=== PATIENT | male | born 1975 | race Hispanic/Latino ===

== ENCOUNTER 2018-05-09 15:47 | Emergency (ER) | payer OTHER ==
[2018-05-09] MEDS ORDERED: MORPHINE 4 MG/ML SYR ONE (16:37)
[2018-05-09] MEDS ORDERED: ONDANSETRON 4 MG/2 ML VIAL ONE (16:37)
[2018-05-09 16:41] LABS: Absolute Lymphocytes (CBC) 1.8 K/uL (0.7-4.9); Absolute Monocytes 0.5 K/uL (0.1-1.3); Absolute Neutrophil 3.4 K/uL (1.8-8.0); Eosinophils % 2.5 % (0-4.4); Hematocrit 45.2 % (39.6-49.0); Lymphocytes % 30.4 % (15.3-44.8); MCH 29.5 pg (27.0-35.0); MCV 88.1 fL (80-100); MPV 8.9 fL (7.6-11.3); Monocytes % 8.3 % (3.3-12.3); RBC Red Blood Cell Count 5.13 M/uL (4.33-5.43)
[2018-05-09 16:51] LABS: Albumin 3.8 g/dL (3.4-5.0); Bilirubin Total 0.3 mg/dL (0.2-1.0); Protein, Total 7.8 g/dL (6.4-8.2)
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
[2018-05-09 17:55] LABS: Urine Amorphous Sediment 1+ /HPF (NONE SEEN); Urine Bacteria <20 /HPF (NONE SEEN); Urine Culture Reflex Order NOT NEEDED; Urine RBC <5 /HPF (NONE SEEN)
[2018-05-09 20:21] LABS: Urine Blood 1+ (NEG); Urine Glucose NEGATIVE (NEG); Urine Protein NEGATIVE (NEG)
== END 2018-05-09 19:05 | disposition short-term general hospital (02) ==
LOC: ER 15:47
DX: S13.4XXA Sprain of ligaments of cervical spine, initial encounter (principal); V79.50XA Passenger on bus injured in collision with unspecified motor vehicles in traffic accident, initial encounter
CPT/HCPCS: 36415; 70450; 70498; 71260; 72125; 74177; 80053; 81003; 81015; 85025; 86850; 86900; 86901; J2405; Q9967